=== PATIENT | male | born 1995 | race African-American/Black ===

== ENCOUNTER 2019-05-18 17:02 | Emergency (ER) | payer SELFPAY ==
[~2019-05-18] VITALS: Ht 188 cm; Wt 91.0 kg
[2019-05-18] MEDS ORDERED: IBUPROFEN 800MG TABLET PO ONE (21:30)
[2019-05-18 21:48] VITALS: BP 128/87
== END 2019-05-18 21:50 | disposition home or self-care (01) ==
LOC: ER 17:02
DX: R10.9 Unspecified abdominal pain (principal)
CPT/HCPCS: 99283